=== PATIENT | male | born 1995 | race Hispanic/Latino ===

== ENCOUNTER 2021-07-21 03:32 | Emergency (ER) | payer SELFPAY ==
[~2021-07-21] VITALS: Ht 182.9 cm; Wt 108.9 kg
[2021-07-21] MEDS ORDERED: PENICILLIN G BENZATHINE LA 1.2 MU TBX IM STA (03:40)
[2021-07-21] MEDS ORDERED: DEXAMETHASONE SOD PHOS 10 MG/1 ML VIAL IM ONE (03:45)
[2021-07-21] MEDS ORDERED: PENICILLIN G BENZATHINE LA 1.2 MU TBX ONE (03:56)
== END 2021-07-21 04:20 | disposition home or self-care (01) ==
LOC: ER 03:50
DX: J03.90 Acute tonsillitis, unspecified (principal)
CPT/HCPCS: 99282; J0561; J1100

== ENCOUNTER 2021-10-26 08:36 | Emergency (ER) | payer SELFPAY ==
[~2021-10-26] VITALS: Ht 182.9 cm; Wt 113.4 kg
== END 2021-10-26 10:38 | disposition home or self-care (01) ==
LOC: ER 08:45
DX: I10 Essential (primary) hypertension (principal); F32.A Depression, unspecified; Z20.822 Contact with and (suspected) exposure to COVID-19; F17.210 Nicotine dependence, cigarettes, uncomplicated
CPT/HCPCS: 93005; 99284; U0002

== ENCOUNTER 2022-04-06 03:01 | Emergency (ER) | payer SELFPAY ==
[~2022-04-06] VITALS: Ht 182.9 cm; Wt 113.4 kg
== END 2022-04-06 03:27 | disposition home or self-care (01) ==
LOC: ER 03:06
DX: K02.9 Dental caries, unspecified (principal); K04.7 Periapical abscess without sinus
CPT/HCPCS: 99282

== ENCOUNTER 2023-01-04 23:18 | Emergency (ER) | payer SELFPAY ==
[~2023-01-04] VITALS: Ht 182.9 cm; Wt 113.4 kg
[2023-01-05 00:01] VITALS: O2SAT 100
[2023-01-05] MEDS ORDERED: CLEOCIN HCL300 MG PO (00:45)
[2023-01-05] MEDS ORDERED: KETOROLAC TROME10 MG PO (00:45)
== END 2023-01-05 00:49 | disposition home or self-care (01) ==
LOC: ER 23:43
DX: K04.7 Periapical abscess without sinus (principal)
CPT/HCPCS: 99283